=== PATIENT | female | born 1940 | race Caucasian/White ===

== ENCOUNTER 2018-01-17 18:13 | Emergency (ER) | payer MEDICARE, OTHER ==
[~2018-01-17] VITALS: Ht 157.5 cm; Wt 63.7 kg
[2018-01-17 20:06] LABS: HEMATOCRIT 41.1 % (36.0-46.0); HEMOGLOBIN 13.9 G/DL (11.9-15.5); MCH 30.2 PG (29.0-34.0); MCHC 33.8 G/DL (30.0-36.0); MCV 89.2 FL (83-99); PLATELET COUNT 221 K/uL (156-360); RBC DIS.WIDTH-CV 12.6 % (11.8-14.6); RBC DIS.WIDTH-SD 41.1 % (39-53); RED BLOOD COUNT 4.61 M/uL (3.80-5.20); WHITE BLOOD COUNT 14.6 K/uL (4.1-10.2)
[2018-01-17 20:12] LABS: APPEARANCE SL.HAZY ((CLEAR)); BILIRUBIN NEGATIVE; BLOOD SMALL; COLOR YELLOW ((YELLOW)); GLUCOSE (STRIP) NEGATIVE; KETONES NEGATIVE; LEUKOCYTES LARGE; NITRITE POSITIVE; PROTEIN (STRIP) NEGATIVE; SPECIFIC GRAVITY 1.004 (1.000-1.030); UROBILINOGEN 0.2 MG/DL (0.2-1.0)
[2018-01-17 20:16] LABS: ALBUMIN 4.6 g/dL (3.2-4.8); CHLORIDE 105 mEq/L (99-109); POTASSIUM 4.4 mEq/L (3.7-5.4); SODIUM 139 mEq/L (136-147)
[2018-01-17 20:19] LABS: GLUCOSE 111 mg/dL (70-99); TOTAL PROTEIN 8.5 g/dL (6.4-8.3)
[2018-01-17 20:21] LABS: BACTERIA RARE /HPF; EPITHELIAL CELLS RARE /HPF; MUCUS TRACE /LPF; UCUL ADDED? YES; WHITE BLOOD CELLS TNTC /HPF (0-5)
[2018-01-17 20:21] LABS: TOTAL BILIRUBIN 0.7 mg/dL (0.0-1.0)
[2018-01-17 20:22] LABS: ALKALINE PHOSPHATASE 85 IU/L (3-129); GFR ESTIMATE (CALCULATED) 57 mL/min/
[2018-01-17 20:23] LABS: UREA NITROGEN (BUN) 14 mg/dL (9-23)
[2018-01-17 20:24] LABS: AST (GOT) 24 IU/L (2-34)
[2018-01-17 20:25] LABS: ALT (GPT) 19 IU/L (3-49)
[2018-01-17 20:29] LABS: TROP-I INTERPRETATION NEGATIVE; TROPONIN-I 0.01 ng/mL (0.0-0.30)
[2018-01-17] MEDS ORDERED: PANTOPRAZOLE SO40 MG PO (20:33)
[2018-01-17] MEDS ORDERED: CLOPIDOGREL75 MG PO (20:33)
[2018-01-17] MEDS ORDERED: ERGOCALCIF50000 UNIT PO (20:33)
[2018-01-17] MEDS ORDERED: VALSARTAN160 MG PO (20:36)
[2018-01-17] MEDS ORDERED: ONDANSETRON ODT4 MG PO (20:36)
[2018-01-17] MEDS ORDERED: METOPROLOL SUC100 MG PO (20:37)
[2018-01-17] MEDS ORDERED: FUROSEMIDE20 MG PO (20:39)
[2018-01-17] MEDS ORDERED: FOLBIC RF TABL1 EACH PO (20:40)
[2018-01-17 21:10] LABS: D-DIMER ELISA < 150.00 ng/mLDDU (<230)
[2018-01-17] MEDS ORDERED: KEFLEX500 MG PO (22:49)
[2018-01-18 00:31] VITALS: BP 177/114
== END 2018-01-18 01:22 | disposition home or self-care (01) ==
LOC: EME 18:13
PROVIDERS: Physician Assistant
DX: N39.0 Urinary tract infection, site not specified (principal); B96.89 Other specified bacterial agents as the cause of diseases classified elsewhere; I10 Essential (primary) hypertension; I50.9 Heart failure, unspecified; J44.9 Chronic obstructive pulmonary disease, unspecified; I48.91 Unspecified atrial fibrillation; Z87.891 Personal history of nicotine dependence; Z86.73 Personal history of transient ischemic attack (TIA), and cerebral infarction without residual deficits; Z90.49 Acquired absence of other specified parts of digestive tract
CPT/HCPCS: 70450; 71046; 80053; 81003; 83605; 83880; 84484; 85027; 85379; 87077; 87086; 87186; 93005; 99281; 99285; J0696; J2060